=== PATIENT | male | born 1960 ===

== ENCOUNTER 2019-01-07 14:10 | Emergency (ER) | payer OTHER ==
--- NOTE | 2019-01-08 14:18 | NUR ---
Called patient to return to the ED. No answer, left VM.
== END 2019-01-07 15:12 | disposition left against medical advice (07) ==
LOC: ER 14:11
DX: M79.646 Pain in unspecified finger(s) (principal); Z53.21 Procedure and treatment not carried out due to patient leaving prior to being seen by health care provider